=== PATIENT | male | born 1940 | race Caucasian/White ===

== ENCOUNTER 2017-01-31 14:51 | Inpatient (IN) | payer MEDICARE, BC ==
[~2017-01-31] VITALS: Ht 175.3 cm; Wt 92.5 kg
[~2017-01-31 14:51] MED LIST: ACET1TAB14 PO; AMLO10TA2 PO; ASPI-869 PO; ATOR10TA PO; BLOO-129 IN; BRIM5DRO2 LEFTEYE; CLOP75TA2 PO; FLUO20CA36 PO; GABA-534 PO; HYDR25TA4 PO; INSU100I4 SQ; INSU100V7 SQ; LANS30CA10 GT; LEVO750T21 PO; MIRT30TA7 PO; PRED5DRO7 LEFTEYE; RAMI10CA PO; TRAZ-144 PO
--- NOTE | 2017-01-31 14:57 | NUR ---
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 DENIES HEAD TRAUMA. NO OBVIOUS DEFORMITY NOTED. PT STATES PAIN IS TOLERABLE IF HE IS NOT MOVING THE AFFECTED EXTREMITY. PLACED ON MONITOR. NAD NOTED. IRIS RIVERA.
[2017-01-31] MEDS ORDERED: MORPHINE SULFATE INJ 4 MG/ML DISP.SYRIN ONE ×2 (15:14→16:22)
[2017-01-31] MEDS ORDERED: MORPHINE SULFATE INJ 2 MG/ML DISP.SYRIN IM ONE (15:30)
--- NOTE | 2017-01-31 15:35 | NUR ---
PT TO RADIOLOGY FOR LT HIP, FEMUR, TIB/FIB AND KNEE XRAY.
[2017-01-31 16:07] LABS: BASOPHILS % (AUTO) 0.3 % (0.0-2.0); EOSINOPHILS # (AUTO) 0.1 /CMM (0.0-0.7); EOSINOPHILS % (AUTO) 0.9 % (0.0-6.0); HEMATOCRIT 36 % (39-51); LYMPHOCYTES # (AUTO) 0.9 /CMM (0.8-4.8); MEAN CORPUSCULAR HEMOGLOBIN 28 PG (26.0-33.0); MEAN CORPUSCULAR HGB CONC 34 g/dl (31.0-36.0); MEAN CORPUSCULAR VOLUME 84 fL (80-96); MONOCYTES % (AUTO) 8.7 % (2.0-12.0); NEUTROPHILS # (AUTO) 9.1 /CMM (1.8-8.9); NEUTROPHILS % (AUTO) 82.1 % (43.0-81.0); PLATELET COUNT (AUTO) 159 /CMM (150-450); RDW COEFFICIENT OF VARIATION 12.7 (11.5-15.0); RED BLOOD CELL COUNT(AUTO) 4.25 MIL/uL (4.5-6.0); WHITE BLOOD COUNT (AUTO) 11.1 K/uL (4.3-11.0)
--- NOTE | 2017-01-31 16:08 | NUR ---
PAGED DR CONNELLY TOOL PLANNER ORTHO
[2017-01-31 16:17] LABS: CALCIUM, SERUM 8.4 mg/dL (8.5-10.1); CARBON DIOXIDE 24 mmol/L (21-32); CHLORIDE 101 mmol/L (98-107); CREATININE 1.7 mg/dL (0.6-1.3); GLUCOSE 299 mg/dL (74-106); POTASSIUM 5.6 mmol/L (3.5-5.1); SODIUM SERUM 132 mmol/L (136-145); UREA NITROGEN, BLOOD 31 mg/dL (7-18)
[2017-01-31 16:21] LABS: INR 1.38 (0.87-1.13); PROTHROMBIN TIME 14.6 SECS (9.5-12.7)
[2017-01-31] MEDS ORDERED: MAG HYDROX/AL HYDROX/SIMETH 30 ML UDC PO PRN (16:30)
[2017-01-31] MEDS ORDERED: DEXTROSE 50%-WATER 50 ML DISP.SYRIN IV PRN (16:30)
[2017-01-31] MEDS ORDERED: ZOLPIDEM TARTRATE 5 MG TABLET PO PRN (16:30)
[2017-01-31] MEDS ORDERED: MORPHINE SULFATE INJ 2 MG/ML DISP.SYRIN IV ONE (16:30)
[2017-01-31] MEDS ORDERED: MAGNESIUM HYDROXIDE 30 ML UDC PO PRN (16:30)
[2017-01-31] MEDS ORDERED: MORPHINE SULFATE INJ 2 MG/ML DISP.SYRIN IV PRN (16:30)
[2017-01-31] MEDS ORDERED: Z GUARD REMEDY 2 OZ OINT TP PRN (16:30)
[2017-01-31] MEDS ORDERED: ONDANSETRON HCL/PF 4 MG/2 ML VIAL IVP PRN (16:30)
[2017-01-31] MEDS ORDERED: ACETAMINOPHEN 325 MG TABLET PO PRN (16:30)
[2017-01-31] MEDS ORDERED: ONDANSETRON HCL/PF 4 MG/2 ML VIAL IV ONE (16:30)
[2017-01-31 16:54] LABS: BAND % (MANUAL) 3 % (0.0-5.0); BASOPHILS % (MANUAL) 0 % (0.0-2.0); EOSINOPHILS % (MANUAL) 1 % (0-4); LYMPHOCYTES % (MANUAL) 7 % (16-48); MONOCYTES % (MANUAL) 4 % (0-11.0); NEUTROPHILS % (MANUAL) 85 (42-76)
[2017-01-31] MEDS ORDERED: SODIUM POLYSTYRENE SULFONATE 15 G/60 ML BOTTLE PO ONE ×2 (17:00→23:00)
[2017-01-31] MEDS ORDERED: CALCIUM CHLORIDE 1,000 MG/10 ML DISP.SYRIN IV ONE (17:00)
[2017-01-31] MEDS ORDERED: INSULIN REGULAR, HUMAN 100 UNIT/ML 10 ML VIAL IV ONE (17:00)
[2017-01-31] MEDS ORDERED: IV NS 0.9% 1,000 ML BAG IV ONE (17:00)
[2017-01-31] MEDS ORDERED: SODIUM BICARBONATE SYR 50 MEQ/50 ML DISP.SYRIN IV ONE (17:00)
--- NOTE | 2017-01-31 17:22 | NUR ---
REPORT GIVEN TO BRENDA. PT AWAITING TRANSFER TO FLOOR.
[2017-01-31] MEDS ORDERED: SODIUM BICARBONATE SYR 50 MEQ/50 ML DISP.SYRIN ONE (17:23)
[2017-01-31] MEDS ORDERED: IV SET PRIMARY 1 EA INFUS.SET MC ONE (17:23)
[2017-01-31] MEDS ORDERED: ONDANSETRON HCL/PF 4 MG/2 ML VIAL ONE (17:23)
[2017-01-31] MEDS ORDERED: CALCIUM CHLORIDE 1,000 MG/10 ML DISP.SYRIN ONE (17:23)
[2017-01-31] MEDS ORDERED: INSULIN REGULAR, HUMAN 100 UNIT/ML 10 ML VIAL ONE (17:24)
[2017-01-31] MEDS ORDERED: IV NS 0.9% 1,000 ML ONE (17:24)
--- NOTE | 2017-01-31 17:30 | NUR ---
STATES STATES PT IS TAKING POTASSIUM PILLS MORNING AND NIGHT. DR HODGSON MADE AWARE.
[2017-01-31] MEDS ORDERED: SODIUM POLYSTYRENE SULFONATE 15 G/60 ML BOTTLE ONE ×2 (17:49→23:04)
[2017-01-31 18:00] VITALS: BP 164/78
--- NOTE | 2017-01-31 18:00 | NUR ---
ADMISSION NOTE ADMITTED TO UNIT UNDER TEAM NURSING CARE- ALL NEEDS ASSESSED AND MET. PATIENT A+OX3, BREATHING EVEN AND UNLABORED, LUNG SOUNDS CLEAR. 10/10 PAIN. CHARGE NURSE FOR MORPHINE ORDER. NON AMBULATORY S/P FALL. VS STABLE. SEEN AND REVIEWED BY DR. BENNETT. RAC IV PATENT WITH FLUIDS ORDERED STARTED. PLAN OF CARE REVIEWED, PATIENT VERBALIZED UNDERSTANDING. WOUNDS ASSESSED, NO DRAINAGE. UNABLE TO DOCUMENT D/T TIME LIMITATIONS. NIGHT NURSE INFORMED. ORIENTED TO UNIT. CALL LIGHT IN REACH. WRIST BAND ON. BED ALARM ON.
[2017-01-31] MEDS: BLOOD SUGAR DIAGNOSTIC 1 EACH STRIP IN SCH ×2 (18:25→21:11)
[2017-01-31] MEDS ORDERED: IV SET PRIMARY PUMP SET 1 EA INFUS.SET MC ONE (18:31)
[2017-01-31] MEDS: MORPHINE SULFATE INJ 4 MG/ML DISP.SYRIN IV PRN ×2 (18:38→23:08)
[2017-01-31] MEDS: INSULIN REGULAR, HUMAN 100 UNIT/ML 3 ML VIAL SQ PRN (18:40)
[2017-01-31] MEDS: FLUOXETINE HCL 20 MG CAPSULE PO SCH (18:40)
[2017-01-31] MEDS: TIMOLOL 0.5% SOLN OPHTH 5 ML BOTTLE LEFTEYE SCH (18:41)
[2017-01-31] MEDS: GABAPENTIN 300 MG CAPSULE PO SCH (18:41)
[2017-01-31] MEDS: BRIMONIDINE TARTRATE OPHT SOLN 5 ML BOTTLE LEFTEYE SCH (18:41)
--- NOTE | 2017-01-31 19:40 | NUR ---
RN NOTES RECEIVED PT AWAKE ON BED WITH A FRIEND AT BEDSIDE. COMPLAINING OF LEFT HIP PAIN AT SCALE OF 9-10/SCALE. AND REQUESTED F/C SO HE CANT MOVE. ASKED PT IF WE CAN DO BODY ASSESSMENT AND TAKE PHOTO PT STATED "IT'S NOT IMPORTANT AT THIS TIME BECAUSE I AM IN PAIN". RESPECT PT WORDS. CALL MD AND INFORMED THAT PT JUST TOOK MEDICINE AN HOUR 1/2 AND STILL COMPLAINING OF PAIN WITH ORDER NOTED AND CARRIED OUT. AND AGREED TO PLACED CONDOM CATH.
[2017-01-31 20:00] VITALS: BP 150/67
[2017-01-31] MEDS ORDERED: IBUPROFEN 600 MG TABLET PO ONE (20:37)
[2017-01-31 20:48] VITALS: BP 150/67
[2017-01-31] MEDS: ATORVASTATIN 10 MG TABLET PO SCH (21:07)
[2017-01-31] MEDS: MIRTAZAPINE 15 MG TABLET PO SCH (21:07)
[2017-01-31] MEDS: IBUPROFEN 400 MG TABLET PO PRN (21:09)
[2017-01-31] MEDS: TRAZODONE 50 MG TABLET PO SCH (21:11)
[2017-01-31] MEDS: IV NS 0.9% 1,000 ML IV PRN (21:16)
[2017-02-01] VITALS (11 sets, daily range): BP systolic 96–181; BP diastolic 56–78
[2017-02-01] MEDS ORDERED: HYDROCODONE/APAP 5/325MG 1 EACH TABLET ONE (03:18)
[2017-02-01] MEDS: MORPHINE SULFATE INJ 4 MG/ML DISP.SYRIN IV PRN ×3 (03:52→16:08)
[2017-02-01] MEDS: HYDROCODONE/APAP 5/325MG 1 EACH TABLET PO PRN ×3 (06:23→23:11)
[2017-02-01] MEDS: IV NS 0.9% 1,000 ML IV PRN (06:25)
--- NOTE | 2017-02-01 06:58 | NUR ---
RN NOTES PT IS COMPLAINING OF MODERATE TO SEVERE PAIN. PAIN MEDICINE GIVEN ORDERED REMAINED EFFECTIVE. PT DOESN'T WANT TO TOUCH HIS LEGS AT THIS TIME DUE TO PAIN. WILL HAVE LEFT HIP SURGERY TODAY AT P9AM., CONSENT SIGN, ALL DUE MEDICINE TOLERATED WELL. PT IS NPO SINCE MIDNIGHT. AWARE REGARDING SURGERY AND NPO STATUS. KEPT PT CLEAN AND COMFORTABLE IN BED. WILL ENDORSED CONTINUITY OF CARE TO AM NURSE.
[2017-02-01] MEDS: PANTOPRAZOLE 40 MG TABLET.DR PO SCH (07:17)
[2017-02-01] MEDS: BLOOD SUGAR DIAGNOSTIC 1 EACH STRIP IN SCH ×4 (07:30→21:50)
--- NOTE | 2017-02-01 07:50 | NUR ---
FICTION AND NONFICTION AUTHOR INITIAL NOTES PT ALERT AND ORIENT x3 PT IS COMPLAINING OF SEVERE PAIN. PAIN MEDICINE GIVEN ORDERED REMAINED NON EFFECTIVE. PT DOESN'T WANT TO TOUCH HIS LEGS AT THIS TIME DUE TO PAIN. NURSING STAFF ASKED IF WE COULD PERFORM A BED BATH. PT WILL HAVE LEFT HIP SURGERY TODAY AT 9AM., CONSENT SIGN. PT IS NPO SINCE MIDNIGHT. AWARE REGARDING SURGERY AND NPO STATUS. KEPT PT CLEAN AND COMFORTABLE IN BED.
[2017-02-01 07:52] LABS: BASOPHILS % (AUTO) 0.4 % (0.0-2.0); EOSINOPHILS # (AUTO) 0.4 /CMM (0.0-0.7); EOSINOPHILS % (AUTO) 4.5 % (0.0-6.0); HEMATOCRIT 35 % (39-51); HEMOGLOBIN 11.9 g/dL (13.5-17.5); LYMPHOCYTES # (AUTO) 1.1 /CMM (0.8-4.8); MEAN CORPUSCULAR HEMOGLOBIN 29 PG (26.0-33.0); MEAN CORPUSCULAR HGB CONC 34 g/dl (31.0-36.0); MEAN CORPUSCULAR VOLUME 85 fL (80-96); MONOCYTES # (AUTO) 0.7 /CMM (0.1-1.30); MONOCYTES % (AUTO) 8.4 % (2.0-12.0); NEUTROPHILS % (AUTO) 73.7 % (43.0-81.0); PLATELET COUNT (AUTO) 149 /CMM (150-450); RDW COEFFICIENT OF VARIATION 13.3 (11.5-15.0); RED BLOOD CELL COUNT(AUTO) 4.13 MIL/uL (4.5-6.0); WHITE BLOOD COUNT (AUTO) 8.1 K/uL (4.3-11.0)
[2017-02-01] MEDS ORDERED: BACITRACIN 50000 UNITS/VIAL ONE (08:08)
[2017-02-01 08:18] LABS: CALCIUM, SERUM 8.4 mg/dL (8.5-10.1); CARBON DIOXIDE 26 mmol/L (21-32); CHLORIDE 107 mmol/L (98-107); CREATININE 1.3 mg/dL (0.6-1.3); GLUCOSE 205 mg/dL (74-106); MAGNESIUM 1.7 mg/dL (1.8-2.4); PHOSPHORUS 3.8 mg/dL (2.5-4.9); POTASSIUM 4.7 mmol/L (3.5-5.1); SODIUM SERUM 140 mmol/L (136-145); UREA NITROGEN, BLOOD 24 mg/dL (7-18)
[2017-02-01] MEDS: INSULIN DETEMIR 100 UNIT/ML CARTRIDGE SQ SCH (09:00)
[2017-02-01] MEDS: TIMOLOL 0.5% SOLN OPHTH 5 ML BOTTLE LEFTEYE SCH ×2 (09:00→16:10)
[2017-02-01] MEDS: AMLODIPINE BESYLATE 10 MG TABLET PO SCH (09:00)
[2017-02-01] MEDS: FLUOXETINE HCL 20 MG CAPSULE PO SCH ×2 (09:00→16:08)
[2017-02-01] MEDS: GABAPENTIN 300 MG CAPSULE PO SCH ×3 (09:00→16:08)
[2017-02-01] MEDS: BRIMONIDINE TARTRATE OPHT SOLN 5 ML BOTTLE LEFTEYE SCH ×2 (09:00→16:10)
[2017-02-01] MEDS: HYDROCHLOROTHIAZIDE 25 MG TABLET PO SCH (09:00)
[2017-02-01] MEDS: RAMIPRIL 5 MG CAPSULE PO SCH (09:00)
[2017-02-01] MEDS ORDERED: FENTANYL PF 100MCG/2ML AMPUL ONE ×2 (09:01→10:54)
[2017-02-01] MEDS ORDERED: BUPIVACAINE 0.5 % PF 150 MG/30 ML VIAL ONE (09:40)
--- NOTE | 2017-02-01 10:26 | NUR ---
RN NOTE RN UNABLE TO ADMINISTER AM MEDICATION DUE TO THE PATIENT CURRENTLY BEING IN THE OR
[2017-02-01] MEDS ORDERED: BUPIVACAINE MPF 0.5% W/EPI INJ 30 ML VIAL ONE (10:29)
[2017-02-01] MEDS ORDERED: ANESTHESIA TRAY IN PYXIS 1 EA TRAY MC ONE (10:30)
[2017-02-01] MEDS ORDERED: HYDROMORPHONE 1 MG/1 ML DISP.SYRIN ONE (10:46)
[2017-02-01] MEDS ORDERED: IV NS 0.9% 250 ML IV ONE (10:58)
--- NOTE | 2017-02-01 11:50 | NUR ---
MUSIC VIDEO PRODUCER NOTE RN RECEIVED REPORT IN REGARD TO PATIENT LEFT HIP HEBERT PLACEMENT PT VITALS ASSESSED UPON RETURN TO UNIT AND Q15
[2017-02-01] MEDS: INSULIN REGULAR, HUMAN 100 UNIT/ML 3 ML VIAL SQ PRN ×3 (13:52→22:07)
[2017-02-01] MEDS: Magnesium 1GM/D5W 100ML PREMIX 100 ML IV SCH ×2 (14:00→16:08)
[2017-02-01] MEDS ORDERED: IV SET PRIMARY PUMP SET 1 EA INFUS.SET MC ONE (16:10)
[2017-02-01] MEDS ORDERED: SECONDARY IV SET 1 EA INFUS.SET MC ONE (16:10)
[2017-02-01] MEDS: ANCEF 1 GM/50 ML D5W IV SCH ×2 (17:00)
--- NOTE | 2017-02-01 20:28 | NUR ---
END OF SHIFT PATIENT IN STABLE CONDITION, VERBALIZING NEEDS, LOC WNL. BREATHING EVEN AND UNLABORED. REPOSITIONED [id number] COMFORT. CALL LIGHT IN REACH. REPORT GIVEN TO PM NURSE- ALL MEDICATION GIVEN ALL , BED LOCK IN THE LOWEST POSITION PATIENT STABLE PAIN ADDRESSED
--- NOTE | 2017-02-01 20:58 | NUR ---
TELE/RN OPENING NOTES RECEIVED PATIENT IN BED. ABLE TO RESPOND AND VERBALIZE NEEDS. WILL CONTINUE PLAN OF CARE. MONITOR HYPO/HYPERGLYCEMIA AND PAIN MANAGEMENT MONITORING. CALL LIGHTS WITHIN REACH.
[2017-02-01] MEDS: TRAZODONE 50 MG TABLET PO SCH (21:50)
[2017-02-01] MEDS: MIRTAZAPINE 15 MG TABLET PO SCH (21:51)
[2017-02-01] MEDS: ATORVASTATIN 10 MG TABLET PO SCH (21:51)
[2017-02-02] VITALS: BP 135/50
[2017-02-02] MEDS: ANCEF 1 GM/50 ML D5W IV SCH ×4 (01:21→08:31)
[2017-02-02 04:00] VITALS: BP 141/69
--- NOTE | 2017-02-02 04:25 | NUR ---
TELE/RN NOTES PATIENT REMOVED DRESSING ON SURGICAL SITE ON LEFT HIP. NEED TO REAAPLY. INFORM MD/CHARGE NURSE. PATIENT REPORTED PAIN IN HIP AT 03/19 WILL ADM MEDICATION.
[2017-02-02] MEDS: MORPHINE SULFATE INJ 4 MG/ML DISP.SYRIN IV PRN ×3 (04:28→20:48)
[2017-02-02] MEDS: IV NS 0.9% 1,000 ML IV PRN (06:36)
--- NOTE | 2017-02-02 07:00 | NUR ---
tele/rn notes patient in bed, hob elevated. no s/s of sob or distress. pain medication given. on sr 93. on michelle, patency check with urine output. iv site right ac. will continue to monitor.
[2017-02-02 07:14] LABS: BASOPHILS % (AUTO) 0.1 % (0.0-2.0); EOSINOPHILS # (AUTO) 0.2 /CMM (0.0-0.7); EOSINOPHILS % (AUTO) 1.7 % (0.0-6.0); HEMATOCRIT 29 % (39-51); HEMOGLOBIN 9.9 g/dL (13.5-17.5); LYMPHOCYTES # (AUTO) 0.5 /CMM (0.8-4.8); LYMPHOCYTES % (AUTO) 4.9 % (20.0-44.0); MEAN CORPUSCULAR HEMOGLOBIN 29 PG (26.0-33.0); MEAN CORPUSCULAR HGB CONC 34 g/dl (31.0-36.0); MEAN CORPUSCULAR VOLUME 85 fL (80-96); MONOCYTES # (AUTO) 0.7 /CMM (0.1-1.30); NEUTROPHILS # (AUTO) 9.5 /CMM (1.8-8.9); NEUTROPHILS % (AUTO) 87.3 % (43.0-81.0); PLATELET COUNT (AUTO) 151 /CMM (150-450); RDW COEFFICIENT OF VARIATION 13.4 (11.5-15.0); RED BLOOD CELL COUNT(AUTO) 3.44 MIL/uL (4.5-6.0); WHITE BLOOD COUNT (AUTO) 10.9 K/uL (4.3-11.0)
[2017-02-02] MEDS: HYDROCODONE/APAP 5/325MG 1 EACH TABLET PO PRN ×2 (07:15→22:35)
[2017-02-02 07:43] LABS: CALCIUM, SERUM 7.9 mg/dL (8.5-10.1); CARBON DIOXIDE 26 mmol/L (21-32); CHLORIDE 105 mmol/L (98-107); CREATININE 1.1 mg/dL (0.6-1.3); GLUCOSE 266 mg/dL (74-106); MAGNESIUM 1.9 mg/dL (1.8-2.4); POTASSIUM 4.5 mmol/L (3.5-5.1); SODIUM SERUM 139 mmol/L (136-145); UREA NITROGEN, BLOOD 17 mg/dL (7-18)
[2017-02-02 08:00] VITALS: BP_SYST 156; BP_SYST 198; BP_DIAS 54; BP_DIAS 68
[2017-02-02] MEDS: TIMOLOL 0.5% SOLN OPHTH 5 ML BOTTLE LEFTEYE SCH ×2 (08:33→18:24)
[2017-02-02] MEDS: BRIMONIDINE TARTRATE OPHT SOLN 5 ML BOTTLE LEFTEYE SCH ×2 (08:33→18:23)
[2017-02-02] MEDS: FLUOXETINE HCL 20 MG CAPSULE PO SCH ×2 (08:35→17:27)
[2017-02-02] MEDS: PANTOPRAZOLE 40 MG TABLET.DR PO SCH (08:36)
[2017-02-02] MEDS: RAMIPRIL 5 MG CAPSULE PO SCH (08:36)
[2017-02-02] MEDS: GABAPENTIN 300 MG CAPSULE PO SCH ×3 (08:37→17:27)
[2017-02-02] MEDS: AMLODIPINE BESYLATE 10 MG TABLET PO SCH (08:37)
[2017-02-02] MEDS: HYDROCHLOROTHIAZIDE 25 MG TABLET PO SCH (08:37)
[2017-02-02] MEDS: INSULIN DETEMIR 100 UNIT/ML CARTRIDGE SQ SCH (08:39)
[2017-02-02] MEDS: INSULIN REGULAR, HUMAN 100 UNIT/ML 3 ML VIAL SQ PRN ×2 (08:43→12:21)
[2017-02-02] MEDS: BLOOD SUGAR DIAGNOSTIC 1 EACH STRIP IN SCH ×4 (08:55→22:44)
[2017-02-02] MEDS: IBUPROFEN 400 MG TABLET PO PRN (09:30)
--- NOTE | 2017-02-02 10:00 | NUR ---
CALLED JOSE L MINER. AGAIN,AWAITING FOR RETURN CALL.
--- NOTE | 2017-02-02 11:50 | NUR ---
DR. OLSON MADE AWARE OF THE SUGAR AGAIN THAT PT.'S BLOOD SUGAR RUNNING HIGH. STATED HE WILL TAKE OF THAT.
[2017-02-02 12:00] VITALS: BP 146/57
[2017-02-02] MEDS: ENOXAPARIN SODIUM 40 MG/0.4 ML DISP.SYRIN SQ SCH (12:22)
[2017-02-02] MEDS: ASPIRIN 81 MG TAB.CHEW PO SCH (15:03)
[2017-02-02 16:00] VITALS: BP 113/48
--- NOTE | 2017-02-02 18:10 | NUR ---
EOSS-NOT IN ACUTE DISTRESS NOTED. NEEDS ATTENDED AND ANTICIPATED. CALL LIGHT WITHIN REACH AT ALL TIMES. WILL CONTINUE PLAN OF CARE. S/P LEFT HIP INTRAMEDULLARY RODDING. DRESSING INTACT.CARED FOR.
--- NOTE | 2017-02-02 19:30 | NUR ---
RECEIVED PT IN BED,AWAKE,ALERT AND VERBALLY RESPONSE TO STIMULI. SIGNIFICANT OTHER ON THE BEDSIDE. ON OXYGEN AT 2LPM VIA NC.RIGHT AC IV ACCESS NOTED, INTACT AND PATENT.MEDEROS CATHETER DWELLING WELL .CALL LIGHT WITHIN EASY REACH. WILL CONTINUE TO MONITOR.
[2017-02-02 20:00] VITALS: BP_SYST 126; BP_SYST 149; BP_DIAS 75; BP_DIAS 87
[2017-02-02] MEDS: ATORVASTATIN 10 MG TABLET PO SCH (22:34)
[2017-02-02] MEDS: MIRTAZAPINE 15 MG TABLET PO SCH (22:35)
[2017-02-02] MEDS: TRAZODONE 50 MG TABLET PO SCH (22:35)
--- NOTE | 2017-02-02 22:49 | NUR ---
MS RN NOTES BLOOD SUGAR CHECKED= 67.ORANGE/ APPLE JUICE GIVEN. PT IS ALERT AND VERBALLY RESPONSIVE TO STIMULI.. WILL RECHECKED BLOOD SUGAR IN 30 MINS.
--- NOTE | 2017-02-02 23:23 | NUR ---
BLOOD SUGAR RECHECKED= 130
[2017-02-03] VITALS (7 sets, daily range): BP systolic 145–157; BP diastolic 59–95
--- NOTE | 2017-02-03 | NUR ---
RN NOTES PT REMAINS STABLE THROUGHOUT THE NIGHT.NO S/SOF HYPO/ HYPERGLYCEMIA NOTED.ALL NEEDS ANTICIPATED.KEPT CLEAN AND DRY. SAFETY PRECAUTION MAINTAINED.WILL CONTINUE TO MONITOR.
[2017-02-03] MEDS: BLOOD SUGAR DIAGNOSTIC 1 EACH STRIP IN SCH ×4 (06:47→22:05)
[2017-02-03] MEDS: PANTOPRAZOLE 40 MG TABLET.DR PO SCH ×2 (06:47→09:24)
[2017-02-03] MEDS: INSULIN REGULAR, HUMAN 100 UNIT/ML 3 ML VIAL SQ PRN ×3 (06:50→18:13)
--- NOTE | 2017-02-03 07:16 | NUR ---
RN NOTES ENDORSED PT.TO THE NEXT SHIFT WITH NO CHANGE OF CONDITION
[2017-02-03] MEDS: GABAPENTIN 300 MG CAPSULE PO SCH ×3 (09:24→18:11)
[2017-02-03] MEDS: ASPIRIN 81 MG TAB.CHEW PO SCH (09:24)
[2017-02-03] MEDS: FLUOXETINE HCL 20 MG CAPSULE PO SCH ×2 (09:24→18:11)
[2017-02-03] MEDS: BRIMONIDINE TARTRATE OPHT SOLN 5 ML BOTTLE LEFTEYE SCH ×2 (09:25→17:00)
[2017-02-03] MEDS: TIMOLOL 0.5% SOLN OPHTH 5 ML BOTTLE LEFTEYE SCH ×2 (09:25→17:00)
[2017-02-03] MEDS: RAMIPRIL 5 MG CAPSULE PO SCH (09:25)
[2017-02-03] MEDS: HYDROCHLOROTHIAZIDE 25 MG TABLET PO SCH (09:25)
[2017-02-03] MEDS: AMLODIPINE BESYLATE 10 MG TABLET PO SCH (09:25)
[2017-02-03] MEDS: ENOXAPARIN SODIUM 40 MG/0.4 ML DISP.SYRIN SQ SCH (09:35)
[2017-02-03] MEDS: INSULIN DETEMIR 100 UNIT/ML CARTRIDGE SQ SCH (09:37)
[2017-02-03] MEDS: MORPHINE SULFATE INJ 4 MG/ML DISP.SYRIN IV PRN (13:10)
[2017-02-03] MEDS ORDERED: RIVAROXABAN 10 MG TABLET PO SCH (17:00)
--- NOTE | 2017-02-03 19:23 | NUR ---
RN CLOSING NOTE ALL MD ORDERS CARRIED OUT. WILL GIVE REPORT TO PM RN FOR JOSE
--- NOTE | 2017-02-03 19:24 | NUR ---
RN NOTES RECEIVED PT AWAKE, HOB ELEVATED, NO SOB, NOT IN DISTRESS, ON 2LPM O2 VIA NC AND TOLERATED WELL. PT ALERT AND ORIENTED X 2-3, FORGETFUL WITH PERIODS OF CONFUSION. PT VERBALIZES, HE FEELS TIRED TODAY. IV ACCESS ON RIGHT AC,PATENT AND INTACT. SURGICAL INCISION ON LEFT THIGH DRESSING PATENT, CLEAN AND DRY.KEPT PAT CLEAN AND DRY. WILL CONTINUE TO MONITOR PT.
--- NOTE | 2017-02-03 21:49 | NUR ---
RN NOTES BLOOD SUGAR CHECKED 40MG/DL,PT EASILY AROUSABLE, ALERT, VERBALLY RESPONSIVE, DENIES ANY DISCOMFORT. DEXTROSE 50% GIVEN IV AND PT ABLE TO ORANGE JUICE AND TOLERATED WELL. WILL CONTINUE TO MONITOR PT.
--- NOTE | 2017-02-03 22:15 | NUR ---
RN NOTES BLOOD SUGAR CHECKED 185 MG/DL, PT ALERT, EASILY AROUSABLE, DENIES ANY PAIN AND DISCOMFORT. WILL CONTINUE TO MONITOR PT.
[2017-02-03] MEDS: MIRTAZAPINE 15 MG TABLET PO SCH (22:38)
[2017-02-03] MEDS: ATORVASTATIN 10 MG TABLET PO SCH (22:38)
[2017-02-03] MEDS: TRAZODONE 50 MG TABLET PO SCH (22:38)
[2017-02-04] VITALS: BP 139/61
[2017-02-04 04:00] VITALS: BP 129/63
[2017-02-04] MEDS: BLOOD SUGAR DIAGNOSTIC 1 EACH STRIP IN SCH ×2 (06:37→13:34)
[2017-02-04] MEDS: INSULIN REGULAR, HUMAN 100 UNIT/ML 3 ML VIAL SQ PRN ×2 (06:39→13:35)
--- NOTE | 2017-02-04 06:39 | NUR ---
RN NOTES BLOOD SUGAR CHECKED 158 MG/DL, 2 UNITS INSULIN GIVEN SUBCU PER SLIDING SCALE.
--- NOTE | 2017-02-04 07:15 | NUR ---
RN INITIAL NOTE PT RECEIVED IN BED, RESTING. EASILY AROUSED, ORIENTED, ABLE TO MAKE NEEDS KNOWN. RESPIRATIONS ARE EVEN AND UNLABORED. NO S/S OF SOB OR RESPIRATORY DISTRESS. SATING WELL ON 2L NASAL CANULA. MEDEROS CATHETER DRAINING TO GRAVITY. IV SITE FLUSHED, PATENT. DRESSING C/D/I. SKIN IS WARM AND DRY TO TOUCH. SAFETY PRECAUTIONS IN PLACE, BED IN LOW, LOCKED POSITION WITH TWO SIDE RAILS UP. CALL LIGHT AND BELONGINGS WITHIN EASY REACH. WILL MONITOR CLOSELY.
--- NOTE | 2017-02-04 07:20 | NUR ---
RN NOTES PT ASLEEP, EASILY AROUSABLE, VERBALLY RESPONSIVE, DENIES ANY PAIN AND DISCOMFORT. NO SIGNS OF HYPOGLYCEMIA NOTED, MIDNIGHT SNACKS OFFERED AND TOLERATED WELL. KEPT PT CLEAN AND DRY. ALL NEEDS ATTENDED. ENDORSED TO MORNING RN FOR CONTINUITY OF CARE.
[2017-02-04 08:00] VITALS: BP 149/57
[2017-02-04] MEDS: MORPHINE SULFATE INJ 4 MG/ML DISP.SYRIN IV PRN ×2 (08:41→13:10)
[2017-02-04] MEDS: PANTOPRAZOLE 40 MG TABLET.DR PO SCH (08:43)
[2017-02-04] MEDS: ASPIRIN 81 MG TAB.CHEW PO SCH (08:43)
[2017-02-04] MEDS: GABAPENTIN 300 MG CAPSULE PO SCH ×2 (08:43→12:41)
[2017-02-04] MEDS: RAMIPRIL 5 MG CAPSULE PO SCH (08:43)
[2017-02-04] MEDS: AMLODIPINE BESYLATE 10 MG TABLET PO SCH (08:43)
[2017-02-04 08:44] VITALS: BP 149/57
[2017-02-04] MEDS: HYDROCHLOROTHIAZIDE 25 MG TABLET PO SCH (08:44)
[2017-02-04] MEDS: TIMOLOL 0.5% SOLN OPHTH 5 ML BOTTLE LEFTEYE SCH (08:44)
[2017-02-04] MEDS: BRIMONIDINE TARTRATE OPHT SOLN 5 ML BOTTLE LEFTEYE SCH (08:44)
[2017-02-04] MEDS: FLUOXETINE HCL 20 MG CAPSULE PO SCH (08:48)
[2017-02-04] MEDS: INSULIN DETEMIR 100 UNIT/ML CARTRIDGE SQ SCH (08:53)
--- NOTE | 2017-02-04 14:00 | NUR ---
RN CLOSING NOTE. PATIENT DISCHARGED. [facility]. IV SITE DISCONTINUED. MEDEROS CATHETER REMOVED. EMT PICKED UP PT.
[2017-02-05 09:22] LABS: CALCITRIOL VIT D,1, 25 DIHYDRO 21.6 pg/mL (19.9-79.3)
== END 2017-02-04 14:53 | DRG 480 ==
LOC: ER 14:53 → TELE1 17:10 → MEDSG1 02-02 12:45
PROVIDERS: ADMIT Family Medicine; ATTEND Family Medicine
PROC: 0QS706Z Reposition Left Upper Femur with Intramedullary Internal Fixation Device, Open Approach (ICD-10-PCS; principal; 2017-02-01 10:27)
DX: S72.142A Displaced intertrochanteric fracture of left femur, initial encounter for closed fracture (principal); N17.0 Acute kidney failure with tubular necrosis; E87.1 Hypo-osmolality and hyponatremia; E78.5 Hyperlipidemia, unspecified; E86.9 Volume depletion, unspecified; E87.5 Hyperkalemia; I25.10 Atherosclerotic heart disease of native coronary artery without angina pectoris; Z95.1 Presence of aortocoronary bypass graft; E11.9 Type 2 diabetes mellitus without complications; Z85.46 Personal history of malignant neoplasm of prostate; I10 Essential (primary) hypertension; W18.30XA Fall on same level, unspecified, initial encounter; Y92.89 Other specified places as the place of occurrence of the external cause; K21.9 Gastro-esophageal reflux disease without esophagitis; F32.9 Major depressive disorder, single episode, unspecified; I48.0 Paroxysmal atrial fibrillation; Z79.01 Long term (current) use of anticoagulants; Z86.73 Personal history of transient ischemic attack (TIA), and cerebral infarction without residual deficits
CPT/HCPCS: 36415; 71010-TC; 72170-TC; 73020; 73552; 73590-TC; 80048-TC; 82306; 82652; 82962-TC; 83735-TC; 83970; 84100-TC; 85025-TC; 85730-TC; 86850-TC; 87081-TC; 93307-TC; 97001-TC; 97116-TC; 97530-TC; A4349; A4606; A6209; A6253; A6402; C1713; J0690; J1100; J1170; J1650; J1815; J2270; J2405; J2704; J3010; J3475; J3490; J7030; J7050; J7060; Z7610